=== PATIENT | female | born 1975 | race Caucasian/White ===

== ENCOUNTER 2022-09-04 10:41 | Outpatient (CLI) | payer OTHER | END 2022-09-04 10:42 | disposition home or self-care (01) | LOC: RAD-FRANK 10:41 | PROVIDERS: ATTEND Nurse Practitioner Family | DX: M25.511 Pain in right shoulder (principal); M54.2 Cervicalgia | CPT/HCPCS: 72040 ==

== ENCOUNTER 2022-10-02 10:02 | Outpatient (CLI) | payer MEDICARE | END 2022-10-02 10:03 | disposition home or self-care (01) | LOC: SCSMRI 10:02 | PROVIDERS: ATTEND Nurse Practitioner Family | DX: M25.511 Pain in right shoulder (principal); R60.0 Localized edema; M75.101 Unspecified rotator cuff tear or rupture of right shoulder, not specified as traumatic ==